=== PATIENT | female | born 1955 | race Caucasian/White ===

== ENCOUNTER 2018-08-17 07:22 | Emergency (ER) | payer MEDICAID ==
[~2018-08-17] VITALS: Ht 165.1 cm; Wt 63.6 kg
[2018-08-17 07:24] VITALS: BP 166/74; PULSE 81; RESP 16; Ht 165.1 cm; Wt 63.6 kg
--- NOTE | 2018-08-17 08:31 | ERD ---
ER Documentation Chief Complaint Chief Complaint FALL ON 5 WITH ABRASIONS TO LEFT KNEE HPI Patient is a 62-year-old female with diabetes who presents after a trip and fall. She came to the emergency department as a code green. She had a mechanical trip and fall while on the fifth floor. She has abrasions to her left knee but no pain. She did not hit her head. She has no complaints. She has not had any treatment as of yet. She does have a primary doctor. ROS All systems reviewed and are negative except as per history of present illness. Allergies Allergies: Coded Allergies: No Known Allergy (Unverified , 08/17/18) PMhx/Soc History of Surgery: Yes (UTERINE CA SX) Anesthesia Reaction: No Hx Neurological Disorder: No Hx Respiratory Disorders: No Hx Cardiac Disorders: Yes (HTN, HIGH CHOLESTEROL) Hx Psychiatric Problems: No Hx Miscellaneous Medical Probl: No Hx Alcohol Use: No Hx Substance Use: No Hx Tobacco Use: No Smoking Status: Never smoker FmHx Family History: diabetes Physical Exam Vitals Vital Signs Date Temp Pulse Resp B/P (MAP) Pulse Ox O2 O2 Flow FiO2 Time Delivery Rate 08/17/18 97.3 81 16 166/74 100 07:24 (104) Physical Exam Const: No acute distress Head: Atraumatic Eyes: Normal Conjunctiva ENT: Normal External Ears, Nose and Mouth. Neck: Full range of motion. No meningismus. Resp: Clear to auscultation bilaterally Cardio: Regular rate and rhythm, no murmurs Abd: Soft, non tender, non distended. Normal bowel sounds Skin: Abrasions to left knee Back: No midline or flank tenderness Ext: No cyanosis, or edema, full range of motion of upper and lower extremities without deformity noted Neur: Awake and alert Psych: Normal Mood and Affect Procedures/MDM Patient is a 62-year-old female who presents with a mechanical trip and fall. She has an abrasion of the knee but no signs of pain or deformity. I do not believe she requires an x-ray. She had wound care provided and will be discharged. She can return for any worsening symptoms. Departure Diagnosis: Primary Impression: Abrasion Additional Impression: Fall Encounter type: initial encounter Qualified Codes: W19.XXXA - Unspecified fall, initial encounter Condition: Fair Patient Instructions: Abrasion, Fall, Mechanical Referrals: Your doctor Additional Instructions: Llame al doctor nombrado abajo (Referral Sources) MAANA y miguel ann-marie VIKTORIA PARA DENTRO DE ANN-MARIE SEMANA. Dgale a la secretaria que nosotros le instruimos hacer esta viktoria.Avise o llame si galarza condicin se empeora antes de la viktoria. SHIRAZ NGUYEN MD Aug 17, 2018 08:31
== END 2018-08-17 07:47 | disposition home or self-care (01) ==
LOC: E/R 07:22
DX: S80.212A Abrasion, left knee, initial encounter (principal); I10 Essential (primary) hypertension; W01.0XXA Fall on same level from slipping, tripping and stumbling without subsequent striking against object, initial encounter; Y92.9 Unspecified place or not applicable
CPT/HCPCS: 99282